=== PATIENT | female | born 1960 | race African-American/Black ===

== ENCOUNTER 2021-08-09 21:11 | Emergency (ER) | payer SELFPAY ==
[~2021-08-09] VITALS: Ht 154.9 cm; Wt 81.6 kg
--- NOTE | 2021-08-09 21:30 | NUR ---
PATIENT WAS CALLED TO BE TRIAGED BUT WAS NOT PRESENT IN THE WAITING ROOM OR OUTSIDE OF ER.
--- NOTE | 2021-08-09 22:44 | NUR ---
Dr. Brannon at bedside for MSE.
[2021-08-09] MEDS ORDERED: KETOROLAC TROMETHAMINE 60 MG INJ IM ONE ×2 (23:00→23:06)
--- NOTE | 2021-08-09 23:21 | NUR ---
Pt out of ER for CT.
--- NOTE | 2021-08-09 23:36 | NUR ---
Pt back to ER from CT.
[2021-08-10] MEDS ORDERED: OXYC-128 PO (03:15)
[2021-08-10 03:19] VITALS: BP 145/75
--- NOTE | 2021-08-10 03:19 | NUR ---
Patient discharged to home in stable condition. Written and verbal after care instructions given. Patient verbalizes understanding of instructions. Stressed follow up or return to ER for worsening s/s. Patient out of ER with steady gait, no acute signs of distress, VSS, all belongings taken, provided with copy of CT results.
== END 2021-08-10 03:20 | disposition home or self-care (01) ==
LOC: ER 21:52
DX: S33.5XXA Sprain of ligaments of lumbar spine, initial encounter (principal); S73.101A Unspecified sprain of right hip, initial encounter; W01.0XXA Fall on same level from slipping, tripping and stumbling without subsequent striking against object, initial encounter; Y92.89 Other specified places as the place of occurrence of the external cause; R03.0 Elevated blood-pressure reading, without diagnosis of hypertension
CPT/HCPCS: 72128; 72131; 72192; 96372; 99285; J1885; A4663